=== PATIENT | male | born 1950 | race American Indian/Alaskan Native ===

== ENCOUNTER 2016-09-15 11:08 | Emergency (ER) | payer MEDICARE ==
[2016-09-15 11:12] VITALS: BMI 26.6
[2016-09-15 11:17] VITALS: RESP 18; TEMP 99.2; O2SAT 99
--- NOTE | 2016-09-15 11:22 | ED PDOC ---
Arrival/HPI - General Historian: Patient - History of Present Illness Time/Duration: < month Context: Home - General Chief Complaint: Upper Extremity Problem/Injury Time Seen by Provider: 09/15/16 11:22 - History of Present Illness Narrative History of Present Illness (Text): 09/15/16 11:22 This 66 yo AA male with pmh HTN, CHF, DM, presents to this ED c/o left AC joint pain x 3 weeks. Patient stated pain has worsen last "couple of days", which he feels left UE paresthesias. Pain worsen with movement of his left shoulder, and pain improves by remaining still. Patient denies sob, cp, palpitation, edema, abdominal pain, recent trauma, rash, weakness, dizziness, GREENE, cough, rectal bleeding, BOLAÑOS, diplopia, dysarthria, dysphagia, or abnormal gait. (Kamari Hancock) Past Medical History - Provider Review Nursing Documentation Reviewed: Yes - Infectious Disease Hx of Infectious Diseases: None - Cardiac Hx Congestive Heart Failure: Yes Hx Hypertension: Yes - Endocrine/Metabolic Hx Diabetes Mellitus Type 1: Yes - Psychiatric Hx Substance Use: No - Surgical History Other/Comment: Colonscopy. Hernia sx - Anesthesia Hx Anesthesia: Yes Hx Anesthesia Reactions: No Hx Malignant Hyperthermia: No Family/Social History - Physician Review Nursing Documentation Reviewed: Yes Family/Social History: No Known Family HX Smoking Status: Never Smoked Hx Alcohol Use: No Hx Substance Use: No Allergies/Home Meds Allergies/Adverse Reactions: Allergies No Known Allergies Allergy (Verified 09/15/16 11:11) Home Medications: Home Meds Medication Instructions Recorded Confirmed Carvedilol [Coreg] 1 tab PO BID 09/15/16 09/15/16 Insulin Human (NPH)/Regular 25 unit SC DAILY 09/15/16 09/15/16 [Novolin 70/30 (70/30 units/ml) 10 ml] Losartan [Cozaar] 1 tab PO DAILY 09/15/16 09/15/16 amLODIPine [Norvasc] 1 tab PO DAILY 09/15/16 09/15/16 Review of Systems - Review of Systems Constitutional: Normal. absent: Fatigue, Weight Change, Fevers Eyes: Normal ENT: Normal Respiratory: Normal. absent: SOB, Cough, Sputum, Wheezing Cardiovascular: Normal. absent: Chest Pain, Palpitations, Edema, Calf Pain, GREENE , Orthopnea, Syncope Gastrointestinal: Normal. absent: Abdominal Pain, Nausea, Vomiting Genitourinary Male: Normal. absent: Dysuria, Frequency, Hematuria Musculoskeletal: Other (Left AC joint pain x 3 weeks) Skin: Normal Neurological: Other ((+) patient feeling "tingling" left UE). absent: Headache , Dizziness, Focal Weakness, Gait Changes, Speech Changes, Facial Droop, Disequilibrium, Seizure Endocrine: Normal Hemo/Lymphatic: Normal Psychiatric: Normal Physical Exam Temperature: Afebrile Blood Pressure: Hypertensive Pulse: Regular Respiratory Rate: Normal Appearance: Positive for: Well-Appearing, Non-Toxic, Comfortable Pain Distress: None Mental Status: Positive for: Alert and Oriented X 3 - Systems Exam Head: Present: Atraumatic, Normocephalic Pupils: Present: PERRL Extroacular Muscles: Present: EOMI Conjunctiva: Present: Normal Mouth: Present: Moist Mucous Membranes Pharnyx: Present: Normal. No: ERYTHEMA, EXUDATE, TONSILS ENLARGED Nose (External): Present: Atraumatic Nose (Internal): Present: Normal Inspection Neck: Present: Normal Range of Motion, Trachea Midline. No: Meningeal Signs, MIDLINE TENDERNESS, Paraspinal Tenderness, Lymphadenopathy Respiratory/Chest: Present: Clear to Auscultation, Good Air Exchange. No: Respiratory Distress, Accessory Muscle Use, Wheezes, Decreased Breath Sounds, Rales, Retracting, Rhonchi, Tender to Palpation Cardiovascular: Present: Regular Rate and Rhythm, Normal S1, S2. No: Murmurs Abdomen: Present: Normal Bowel Sounds, Other (abdomen is soft, nt/nd). No: Tenderness, Distention, Peritoneal Signs, Rebound, Guarding Back: Present: Normal Inspection. No: CVA Tenderness, Midline Tenderness, Paraspinal Tenderness, Pain with Leg Raise Upper Extremity: Present: NORMAL PULSES, Neurovascularly Intact, Capillary Refill < 2s, Other ((+) left AC joint area mild swelling, and tender on palpation. No cellulitis or abscess. Right AC joint is normal. Left AC Joint pain is 100 % reproducible.). No: Cyanosis, Edema, Normal ROM (decreased due to left AC joint pain), Erythema, Temperature Abnormalties, Deformity Lower Extremity: Present: Normal Inspection, NORMAL PULSES, Normal ROM, Neurovascularly Intact, Capillary Refill < 2 s. No: Edema, CALF TENDERNESS, Cyanosis, Rea's Sign, Tenderness, Swelling, Erythema Neurological: Present: GCS=15, CN II-XII Intact, Speech Normal, Motor Func Grossly Intact, Normal Sensory Function, Normal Cerebellar Funct, Norm Deep Tendon Reflexes, Gait Normal, Memory Normal, Other (No neuro focal deficits on the affected limb. Rest of the extermities are also unremarkable.) Skin: Present: Warm, Dry, Normal Color. No: Rashes Psychiatric: Present: Alert, Oriented x 3, Normal Insight, Normal Concentration Vital Signs Temp Pulse Resp BP Pulse Ox 09/15/16 12:36 68 18 162/79 H 99 09/15/16 11:16 99.2 F 74 18 167/81 H 99 Medical Decision Making Re-evaluation Time: 12:26 Reassessment Condition: Re-examined, Improved ED Course and Treatment: I was available for consultation during PA evaluation. The chart was reviewed by me, and I agree with disposition. The documented history was done by the physician die trimmer. The documented physical exam was done by the physician die trimmer. The documented procedures were done by the physician die trimmer. (Jeffy Mcmahon) 09/15/16 12:26 Re-evaluation. Patient feels better. Discussed results and plan with patient who expresses understanding. All questions answered and there is agreement with the plan to discharge home with instructions. Patient stable for discharge. Return if symptoms persist or worsen. Patient came c/o left AC joint pain. X-rays demonstrates extensive calcific tendonitis b/l. Patient denies cp, sob, palpitation or dizziness. Patient was recommended to see Orthopedist. (Kamari Hancock) - RAD Interpretation Narrative RAD Interpretations (Text): 09/15/16 12:26 Shoulder x-rays: Mild swelling near left ACJ. Calcific tendonitis? no Fx 09/15/16 12:27 ACJ x-rays: Calcific tendonitis. DJD. No Fx (Kamari Hancock) Radiology Orders: 09/15/16 11:34 SHOULDER LEFT [RAD] Stat 09/15/16 11:35 ACROMIOCLAVICULAR JOINTS BILAT [RAD] Stat - Medication Orders Current Medication Orders: Discontinued Medications Ketorolac Tromethamine (Toradol) 15 mg IM STAT STA Stop: 09/15/16 11:34 Last Admin: 09/15/16 11:56 Dose: 15 mg Tramadol/Acetaminophen (Ultracet 37.5/325 Mg) 1 tab PO STAT STA Stop: 09/15/16 11:35 Last Admin: 09/15/16 11:56 Dose: 1 tab Disposition/Present on Arrival - Present on Arrival Any Indicators Present on Arrival: No History of DVT/PE: No History of Uncontrolled Diabetes: No Urinary Catheter: No History of Decub. Ulcer: No History Surgical Site Infection Following: None - Disposition Have Diagnosis and Disposition been Completed?: Yes Disposition Time: 12:28 Patient Plan: Discharge - Disposition Diagnosis: Acromioclavicular joint pain, Calcific tendinitis of both shoulder regions Disposition: HOME/ ROUTINE Condition: GOOD Discharge Instructions (ExitCare): Tendinitis (ED) Additional Instructions: Call Dr. Cruz [facility] Office for follow up visit in 2-3 days. Take medication as instructed with food. Return to emergency if symptoms worsen. Prescriptions: Famotidine [Pepcid] 40 mg PO DAILY #10 tablet Naproxen 500 mg PO BID PRN #12 tab PRN Reason: Pain, Severe (8-10) traMADol [Ultram] 50 mg PO TID PRN #10 tab PRN Reason: Pain, Severe (8-10) Referrals: Tamika Roy, [Primary Care Provider] - Follow up with primary Ruben Cruz DO [Staff Provider] - Follow up with primary Forms: [employer] (Yi)
[2016-09-15] MEDS ORDERED: TraMADol/Apap 37.5/325 mg Tab PO STA (11:34)
[2016-09-15 12:37] VITALS: BP 162/79; PULSE 68
--- NOTE | 2016-09-15 13:51 | RAD ---
PROCEDURE: Radiographs of the Left Shoulder HISTORY: AC joint pain COMPARISON: Correlation made with concurrent radiographs of both AC joints. FINDINGS: BONES: The current study reveals no evidence of acute displaced fracture nor dislocation. No evidence of widening of the left acromioclavicular joint JOINTS: Degenerative changes of the left acromioclavicular joint with prominent osteophyte formation along the inferior margin acromioclavicular joint prominent; rule out impingement. . SOFT TISSUES: Soft tissue calcification seen overlying the humeral head and greater tuberosity consistent with calcific tendinitis ; concomitant calcific bursitis to be excluded. . OTHER FINDINGS: None. IMPRESSION: DJD left acromioclavicular and glenohumeral joints. Exuberant soft tissue calcifications; which is felt to represent calcific tendinitis however concomitant calcific bursitis not excluded.
--- NOTE | 2016-09-15 13:53 | RAD ---
PROCEDURE: Bilateral acromioclavicular joints dated 09/07/2016. HISTORY: Left AC joint pain COMPARISON: TECHNIQUE: Two views of the right and left acromioclavicular joint performed. FINDINGS: The current study reveals no evidence of acute displaced fracture nor dislocation. 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 Exuberant calcification within the soft tissues adjacent to the left and to a less degree right humeral head and greater tuberosity consistent with calcific tendinitis ; rule out concomitant calcific bursitis. IMPRESSION: No acute displaced fracture nor dislocation. 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 Exuberant calcification within the soft tissues adjacent to the left and to a less degree right humeral head and greater tuberosity consistent with calcific tendinitis ; rule out concomitant calcific bursitis.
== END 2016-09-15 12:47 | disposition home or self-care (01) ==
LOC: ED 11:08 → MERGE 11:08 → ED 12:47
DX: M75.32 Calcific tendinitis of left shoulder (principal); M75.31 Calcific tendinitis of right shoulder; M25.512 Pain in left shoulder; I10 Essential (primary) hypertension
CPT/HCPCS: 73030; 73050; 96372; 99283; J1885